=== PATIENT | male | born 1965 | race Caucasian/White ===

== ENCOUNTER 2017-11-12 21:29 | Emergency (ER) | payer SELFPAY ==
[~2017-11-12] VITALS: Ht 182.9 cm; Wt 86.4 kg
[2017-11-12] MEDS ORDERED: ESCI20TA PO (21:38)
[2017-11-12] MEDS ORDERED: NALT50TA6 PO (21:38)
[2017-11-13] MEDS ORDERED: ChlordiazePOXIDE HCL 25 MG CAPSULE PO ONE
[2017-11-13 00:23] VITALS: BP 134/92
== END 2017-11-13 00:25 | disposition home or self-care (01) ==
LOC: EMS 21:32
DX: F10.239 Alcohol dependence with withdrawal, unspecified (principal); Y90.9 Presence of alcohol in blood, level not specified
CPT/HCPCS: 99283